=== PATIENT | female | born 2000 | race African-American/Black ===

== ENCOUNTER 2019-05-19 20:15 | Emergency (ER) | payer OTHER ==
[~2019-05-19] VITALS: Ht 160 cm; Wt 50.8 kg
[2019-05-19 20:31] VITALS: BP 113/64
--- NOTE | 2019-05-19 20:32 | NUR ---
ED Nurse Note: Patient walked in to ER c/o left elbow pain. States that she hit her elbow today at metal door. No swoleness, no bruises noticed. AAO x4, VSS at this time, skin is dry warm to touch.
--- NOTE | 2019-05-19 20:48 | Emergency Room Report ---
History of Present Illness General Chief Complaint: Upper Extremity Injury Source: Patient Present Illness HPI The patient bumped her left elbow at work today. This happened this morning. She slammed it into a metal door. Is been hurting. She has more pain when she tries to lean on it or extend the arm. There is no numbness. The pain is persisted. She has not take any medication for this. She writes with both hands. She rates the pain 10/10 and aching. She denies any other medical problems. No fevers, chills, nausea, vomiting, diarrhea. She does not believe she is at this time. Allergies: Coded Allergies: PENICILLINS (Verified Allergy, Unknown, 05/19/19) Uncoded Allergies: SHELLFISH (Allergy, Unknown, 05/19/19) Patient History Past Medical History: see triage record Social History: Denies: smoking Social History Narrative [employer], Last Menstrual Period: 05/07/19 Now: No Reviewed Nursing Documentation: PMH: Agreed; PSxH: Agreed Nursing Documentation-PMH Past Medical History: No History, Except For Hx Asthma: Yes Review of Systems All Other Systems: negative except mentioned in HPI Physical Exam Vital Signs Date Time Temp Pulse Resp B/P (MAP) Pulse Ox O2 Delivery O2 Flow Rate FiO2 05/19/19 20:23 98.8 87 18 113/64 (80) 99 Room Air Sp02 EP Interpretation: reviewed, normal General Appearance: well appearing, no apparent distress, GCS 15 Head: normocephalic, atraumatic Eyes: bilateral eye normal inspection, bilateral eye PERRL ENT: hearing grossly normal, normal voice Neck: full range of motion, supple Respiratory: no respiratory distress, speaking full sentences Cardiovascular #2: 2+ radial (R), 2+ radial (L) Musculoskeletal: digits/nails normal, gait/station normal, normal range of motion, other - Tenderness left elbow olecranon and slightly distal to that with some swelling without crepitance Neurologic: alert, normal gait, other - Distal neurologic exam normal Psychiatric: mood/affect normal Skin: no rash Medical Decision Making Diagnostic Impression: Primary Impression: Left elbow contusion Qualified Codes: S50.02XA - Contusion of left elbow, initial encounter ER Course Patient injured her left elbow. Differential includes contusion, fracture amongst others. Based on exam highly suspicious for contusion however x-rays indicated. Also Motrin will be given. Xrays no fx. Jake applied by technical training specialist. Too tight and re-applied by me. Position and tension excellent. Distal neurovasc normal as checked by me. Discussed treatment plan and expected course. Patient stable for outpatient observation and treatment. Other X-Ray Diagnostic Results Other X-Ray Diagnostic Results : X-Ray ordered: L elbow # of Views/Limited Vs Complete: 3 View Indication: Pain EP Interpretation: Yes Interpretation: no dislocation, no soft tissue swelling, no fractures Impression: No acute disease Electronically Signed by: Electronically signed by Isaak Kumari MD Last Vital Signs Date Time Temp Pulse Resp B/P (MAP) Pulse Ox O2 Delivery O2 Flow Rate FiO2 05/19/19 21:18 98.8 18 113/64 99 Room Air 05/19/19 20:23 87 Status: improved Disposition: HOME, SELF-CARE Condition: Improved Scripts Ibuprofen* (MOTRIN*) 600 Mg Tablet 600 MG ORAL Q6H PRN for For Pain, #16 TAB 0 Refills Prov: Isaak Kumari MD 05/19/19 Isaak Kumari MD May 19, 2019 20:48
[2019-05-19] MEDS ORDERED: IBUPROFEN600 MG ORAL (21:13)
[2019-05-19 21:18] VITALS: BP 113/64
--- NOTE | 2019-05-19 21:19 | NUR ---
ER DISCHARGE NOTE: Patient is cleared to be discharged per ERMD, pt is aox4, on room air, with stable vital signs. pt was given dc and prescription instructions, pt was able to verbalize understanding, pt id band and iv site removed without complications. pt is able to ambulate with steady gait. pt took all belongings.
--- NOTE | 2019-05-19 21:26 | Diagnostic Imaging Report ---
EXAM: XR Left Elbow Complete, 3 or More Views CLINICAL HISTORY: TRAUMA TECHNIQUE: Frontal, lateral and oblique views of the left elbow. COMPARISON: No relevant prior studies available. FINDINGS: Bones/joints: Unremarkable. No acute fracture. No dislocation. Soft tissues: Unremarkable. IMPRESSION: Normal left elbow x-rays.
== END 2019-05-19 21:15 | disposition home or self-care (01) ==
LOC: EMR 21:00
DX: S50.02XA Contusion of left elbow, initial encounter (principal); W22.8XXA Striking against or struck by other objects, initial encounter; Y92.9 Unspecified place or not applicable; Z88.0 Allergy status to penicillin; Z91.013 Allergy to seafood
CPT/HCPCS: 99283